=== PATIENT | male | born 1965 | race Caucasian/White ===

== ENCOUNTER 2018-04-13 09:03 | Inpatient (IN) | payer OTHER ==
[2018-04-13 10:42] VITALS: BMI 22.1
--- NOTE | 2018-04-13 11:13 | HP ---
COWS - Scale Resting Pulse: 1= OR 81-100 Sweatin= Chills/Flushing Restless Observation: 3= Extraneous Movement Pupil Size: 1= Pupils >than Normal Bone or Joint Aches: 2= Severe Diffuse Aches Runny Nose/ Eye Tearin= Runny Nose/Eyes GI Upset > 30mins: 2= Nausea/Diarrhea Tremor Observation: 2= Slight Tremor Visible Yawning Observation: 1= 1-2x During Session Anxiety or Irritability: 2=Irritable/Anxious Goose Flesh Skin: 0=Smooth Skin COWS Score: 17 CIWA Score Nausea/Vomitin Muscle Tremors: 2 Anxiety: 2 Agitation: 2 Paroxysmal Sweats: 1-Minimal Palms Moist Orientation: 0-Oriented Tacttile Disturbances: 1-Very Mild Itch/Numbness Auditory Disturbances: 0-None Visual Disturbances: 1-Very Mild Sensitivity Headache: 2-Mild CIWA-Ar Total Score: 13 - Admission Criteria [facility] Guidelines: Admission for Medically Managed Detox: Requires at least one of the followin. CIWA greater than 12 2. Seizures within the past 24 hours 3. Delirium tremens within the past 24 hours 4. Hallucinations within the past 24 hours 5. Acute intervention needed for co occurring medical disorder 6. Acute intervention needed for co occurring psychiatric disorder 7. Severe withdrawal that cannot be handled at a lower level of care (continued vomiting, continued diarrhea, abnormal vital signs) requiring intravenous medication and/or fluids 8. Patient presents the following: CIWA greater than 12 Admission Criteria Met: Admission criteria met Admission ROS [facility] Chief Complaint: ineed help to stop using heroin,alcohol and cocaine Allergies/Adverse Reactions: Allergies Allergy/AdvReac Type Severity Reaction Status Date / Time No Known Allergies Allergy Verified 04/13/18 11:06 History of Present Illness: this 52 years old male with heroin,alcohol and cocaine dependence,seeking detox, withdrawal symptom,last detox in 2017 [place] not competed nicotine dependence syncope alcohol related last 3 days ago injury to right orbit with ecchymosis 3 days [address] seen [address] [facility] multiple admissions in the past but keep relapsing longest period of sobriety 14 years weight loss hepatitis c no treatment paln to go to rehab after detox - Ebola screening Have you traveled outside of the country in the last 21 days: No (N) Have you had contact with anyone from an Ebola affected area: No Have you been sick,other than usual withdrawal symptoms: No Do you have a fever: No - Review of Systems Constitutional: Chills, Loss of Appetite, Malaise, Night Sweats, Changes in sleep, Weakness, Unintentional Wgt. Loss EENT: reports: Tearing, Nose Congestion, Other (ecchymosis right orbit injury 3 days ago seen at [facility]) Respiratory: reports: No Symptoms reported Cardiac: reports: No Symptoms Reported GI: reports: Diarrhea, Nausea, Vomiting, Abdominal cramping : reports: No Symptoms Reported Musculoskeletal: reports: Back Pain, Joint Pain, Joint Stiffness Integumentary: reports: Dryness Neuro: reports: Headache, Tremors Endocrine: reports: No Symptoms Reported Hematology: reports: No Symptoms Reported Psychiatric: reports: No Sypmtoms Reported, Judgement Intact, Mood/Affect Appropiate, Orientated x3 Other Systems: Reviewed and Negative Patient History - Patient Medical History Hx Anemia: No Hx Asthma: No Hx Cancer: No Hx Cardiac Disorders: No Hx Congestive Heart Failure: No Hx Hypertension: No Hx Hypercholesterolemia: No Hx Pacemaker: No HX Cerebrovascular Accident: No Hx Seizures: No Hx Dementia: No Hx Diabetes: No Hx Gastrointestinal Disorders: No Hx Liver Disease: No Hx Genitourinary Disorders: No Hx Sexually Transmitted Disorders: No Hx Renal Disease (ESRD): No Hx Thyroid Disease: No Hx Human Immunodeficiency Virus (HIV): No (last 2017 negative) Hx Hepatitis C: Yes (no treatment ) Hx Depression: No Hx Suicide Attempt: No Hx Bipolar Disorder: No Hx Schizophrenia: No Other Medical History: no suicidal,no homicidal - Patient Surgical History Past Surgical History: No - PPD History Previous Implant?: Yes Documented Results: Negative w/o proof Implanted On Prior [facility] Admission?: No PPD to be Administered?: Yes - Smoking Cessation Smoking history: Current every day smoker Have you smoked in the past 12 months: Yes Aproximately how many cigarettes per day: 20 Cigars Per Day: 0 Hx Chewing Tobacco Use: No Initiated information on smoking cessation: Yes 'Breaking Loose' booklet given: 04/13/18 - Substance & Tx. History Hx Alcohol Use: Yes Hx Substance Use: Yes Substance Use Type: Alcohol, Cocaine, Heroin Hx Substance Use Treatment: Yes - Substances Abused Heroin Route: Injection Frequency: Daily Amount used: 5 bags Age of first use: 18 Date of Last Use: 04/12/18 Cocaine Route: Injection Frequency: Daily Amount used: $100 Age of first use: 18 Date of Last Use: 04/12/18 Alcohol-vodka Route: Oral Frequency: Daily Amount used: 3 pts. Age of first use: 23 Date of Last Use: 04/12/18 Suboxone Route: SL Frequency: 1-3 times last 30 days Amount used: 8 mg. Age of first use: 52 Date of Last Use: 04/12/18 Family Disease History - Family Disease History Family History: Denies Admission Physical Exam [facility] - Vital Signs Vital Signs: Vital Signs - 24 hr 04/13/18 10:37 Temperature 97.3 F L Pulse Rate 85 Respiratory 17 Rate Blood Pressure 139/100 - Physical General Appearance: Yes: Moderate Distress, Tremorous, Irritable, Sweating, Anxious HEENTM: Yes: Normal ENT Inspection, LILO, Pharynx Normal, Other (ecchymosis of right orbit injury 3 days ago no numbness no dipolpia no limitation on movement of eye ball right vision ok) Respiratory: Yes: Within Normal Limits, Lungs Clear, Normal Breath Sounds Neck: Yes: Within Normal Limits, Supple, Trachea in good position Breast: Yes: Within Normal Limits Cardiology: Yes: Regular Rhythm, Regular Rate, S1, S2, Edema Abdominal: Yes: Within Normal Limits, Normal Bowel Sounds, Non Tender, Flat, Soft Genitourinary: Yes: Within Normal Limits Back: Yes: Muscle Spasm Musculoskeletal: Yes: full range of Motion, Back pain, Muscle Pain Extremities: Yes: Tremors 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: 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, Fully Oriented, Alert, Motor Strength 5/5 Integumentary: Yes: Dry, Track Francis Lymphatic: Yes: Within Normal Limits - Diagnostic (1) Opioid dependence with withdrawal Current Visit: Yes Status: Acute (2) Alcohol dependence with uncomplicated withdrawal Current Visit: Yes Status: Acute (3) Cocaine dependence Current Visit: Yes Status: Acute (4) IVDU (intravenous drug user) Current Visit: Yes Status: Acute (5) Weight loss Current Visit: Yes Status: Acute (6) Frequent falls Current Visit: Yes Status: Acute (7) Syncope Current Visit: Yes Status: Acute (8) Right orbit trauma Current Visit: Yes Status: Acute (9) Weight loss Current Visit: Yes Status: Acute (10) Hepatitis C Current Visit: Yes Status: Acute Cleared for Admission [facility] - Detox or Rehab [facility] Level of Care: Medically Managed Detox Regimen/Protocol: Methadone/Librium [facility] Breath Alcohol Content Breath Alcohol Content: 0 Urine Drug Screen - Results Drug Screen Negative: No Urine Drug Screen Results: CESAR-Cocaine, OPI-Opiates, BZO-Benzodiazepines, BUP- Suboxone
[2018-04-13] MEDS ORDERED: NICOTINE POLACRILEX 2 MG GUM BUC PRN (11:23)
[2018-04-13] MEDS ORDERED: LOPERAMIDE HCL 2 MG CAPSULE PO PRN (11:23)
[2018-04-13] MEDS ORDERED: chlordiazePOXIDE HCL 25 MG CAPSULE PO PRN (11:23)
[2018-04-13] MEDS ORDERED: hydrOXYzine PAMOATE 25 MG CAPSULE (FP) PO PRN (11:23)
[2018-04-13] MEDS ORDERED: P-EPHED 60MG/TRIPROLIDI 2.5MG TABLET PO PRN (11:23)
[2018-04-13] MEDS ORDERED: MAGNESIUM CITRATE 300 ML BOTTLE PO PRN (11:23)
[2018-04-13] MEDS ORDERED: ACETAMINOPHEN 325 MG TABLET (FP) PO PRN (11:23)
[2018-04-13] MEDS ORDERED: MAG HYDROX/AL HYDROX/SIMETH 30 ML UNIT-DOSE CUP PO PRN (11:23)
[2018-04-13] MEDS ORDERED: MAGNESIUM HYDROX 2400MG/30ML ORAL SUSPENSION 30 ML CUP PO PRN (11:23)
[2018-04-13] MEDS ORDERED: guaiFENesin/D-METHORPHAN HB 10 ML UNIT-DOSE CUPS PO PRN (11:23)
[2018-04-13] MEDS ORDERED: IBUPROFEN 400 MG TABLET (FP) PO PRN (11:23)
[2018-04-13] MEDS ORDERED: METHADONE HCL 10 MG TABLET (FOR DETOX USE ONLY) PO ONE ×2 (12:10→23:00)
[2018-04-13] MEDS: NICOTINE 21 MG/24 HOURS TOPICAL PATCH TD SCH (12:37)
--- NOTE | 2018-04-13 16:46 | EKG ---
Test Reason : Blood Pressure : / mmHG Vent. Rate : 093 BPM Atrial Rate : 093 BPM P-R Int : 162 ms QRS Dur : 080 ms QT Int : 344 ms P-R-T Axes : 074 066 063 degrees QTc Int : 427 ms NORMAL SINUS RHYTHM POSSIBLE LEFT ATRIAL ENLARGEMENT LEFT VENTRICULAR HYPERTROPHY ABNORMAL ECG NO PREVIOUS ECGS AVAILABLE Confirmed by DANA DENTON MD ([id number]) on 04/13/2018 4:46:31 PM Referred By: Confirmed By:DANA DENTON MD
[2018-04-13] MEDS: chlordiazePOXIDE HCL 25 MG CAPSULE PO SCH ×2 (17:14→22:11)
[2018-04-13 18:31] LABS: URINE APPEARANCE CLEAR; URINE BILIRUBIN NEGATIVE (<2.0 mg/dL); URINE COLOR YELLOW; URINE GLUCOSE (UA) NEGATIVE (NEGATIVE); URINE KETONE NEGATIVE (NEGATIVE); URINE LEUK ESTERASE NEGATIVE (NEGATIVE); URINE NITRITE NEGATIVE (NEGATIVE); URINE PROTEIN NEGATIVE (NEGATIVE); URINE UROBILINOGEN NEGATIVE mg/dL (0.2-1.0)
[2018-04-13] MEDS: THIAMINE HCL 100 MG TABLET (FP) PO SCH (22:11)
[2018-04-13] MEDS: cloNIDine HCL 0.1 MG TABLET PO SCH (22:12)
[2018-04-14] MEDS: chlordiazePOXIDE HCL 25 MG CAPSULE PO SCH ×4 (05:31→22:07)
[2018-04-14] MEDS ORDERED: METHADONE HCL 10 MG TABLET (FOR DETOX USE ONLY) PO SCH (10:00)
[2018-04-14] MEDS: cloNIDine HCL 0.1 MG TABLET PO SCH ×2 (10:26→22:07)
[2018-04-14] MEDS: PRENATAL VITAMINS W/ FOLIC ACID TABLET (FP) PO SCH (10:26)
[2018-04-14] MEDS: NICOTINE 21 MG/24 HOURS TOPICAL PATCH TD SCH (10:29)
--- NOTE | 2018-04-14 10:56 | PN ---
[facility] CIWA - CIWA Score Nausea/Vomitin-Mild Nausea/No Vomiting Muscle Tremors: 4-Moderate,w/Arms Extend Anxiety: 2 Agitation: 2 Paroxysmal Sweats: 1-Minimal Palms Moist Orientation: 1-Uncertain about Date Tacttile Disturbances: 1-Very Mild Itch/Numbness Auditory Disturbances: 0-None Visual Disturbances: 0-None Headache: 2-Mild CIWA-Ar Total Score: 14 [facility] COWS - Scale Resting Pulse: 1= IN 81-100 Sweatin= Chills/Flushing Restless Observation: 1= Difficult to Sit Still Pupil Size: 0= Normal to Room Light Bone or Joint Aches: 2= Severe Diffuse Aches Runny Nose/ Eye Tearin= Runny Nose/Eyes GI Upset > 30mins: 2= Nausea/Diarrhea Tremor Observation of Outstretched Hands: 2= Slight Tremor Visible Yawning Observation: 1= 1-2x During Session Anxiety or Irritability: 2=Irritable/Anxious Goose Flesh Skin: 0=Smooth Skin COWS Score: 14 [facility] Progress Note (SOAP) Subjective: body ache sweat tremor joints pain muscle cramp restlessness Objective: 04/14/18 10:58 Vital Signs Temperature 97.4 F L 04/14/18 09:11 Pulse Rate 80 04/14/18 09:11 Respiratory Rate 18 04/14/18 09:11 Blood Pressure 126/74 04/14/18 09:11 O2 Sat by Pulse Oximetry (%) Laboratory Last Values Urine Color Yellow 04/13/18 15:24 Urine Appearance Clear 04/13/18 15:24 Urine pH 7.0 (5.0-8.0) 04/13/18 15:24 Ur Specific [place] 1.021 (1.010-1.035) 04/13/18 15:24 Urine Protein Negative (NEGATIVE) 04/13/18 15:24 Urine Glucose (UA) Negative (NEGATIVE) 04/13/18 15:24 Urine Ketones Negative (NEGATIVE) 04/13/18 15:24 Urine Blood Negative (NEGATIVE) 04/13/18 15:24 Urine Nitrite Negative (NEGATIVE) 04/13/18 15:24 Urine Bilirubin Negative (<2.0 mg/dL) 04/13/18 15:24 Urine Urobilinogen Negative mg/dL (0.2-1.0) 04/13/18 15:24 Ur Leukocyte Esterase Negative (NEGATIVE) 04/13/18 15:24 lab noted Assessment: 04/14/18 10:58 withdrawal sx Plan: continue detox
[2018-04-14 11:00] LABS: HEMATOCRIT 42.3 % (35.4-49); HEMOGLOBIN 13.4 GM/dL (11.7-16.9); MCH 31.2 pg (25.7-33.7); MCHC 31.8 g/dl (32.0-35.9); MEAN CELL VOLUME 98.2 fl (80-96); MEAN PLT VOLUME 8.1 fl (7.5-11.1); PLATELET COUNT 375 K/MM3 (134-434); RDW 14.1 % (11.9-15.9); WHITE BLOOD COUNT 8.4 K/mm3 (4.0-10.0)
[2018-04-14 11:33] LABS: SICKLE CELL SCREEN NEGATIVE (NEGATIVE)
[2018-04-14 11:45] LABS: ALBUMIN 3.2 g/dl (3.4-5.0); ALK PHOS 107 U/L (45-117); ANION GAP 7 MMOL/L (8-16); BILIRUBIN,TOTAL 0.5 mg/dL (0.2-1); BLOOD UREA NITROGEN 17 mg/dL (7-18); CALCIUM 8.7 mg/dL (8.5-10.1); CHLORIDE 101 mmol/L (98-107); CO2 28 mmol/L (21-32); GLUCOSE,RANDOM 296 mg/dL (74-106); POTASSIUM 4.1 mmol/L (3.5-5.1); SGOT/AST 83 U/L (15-37); SGPT/ALT 54 U/L (13-61); SODIUM 136 mmol/L (136-145); TOT PROT 7.5 g/dl (6.4-8.2)
[2018-04-14] MEDS: CYCLOBENZAPRINE HCL 10 MG TABLET (FP) PO PRN (17:39)
[2018-04-14] MEDS: THIAMINE HCL 100 MG TABLET (FP) PO SCH (22:07)
[2018-04-14] MEDS: MELATONIN 5 MG TABLETS PO PRN (22:07)
[2018-04-15] MEDS: chlordiazePOXIDE HCL 25 MG CAPSULE PO SCH ×2 (05:42→10:16)
[2018-04-15] MEDS: cloNIDine HCL 0.1 MG TABLET PO SCH ×2 (10:15→22:10)
[2018-04-15] MEDS: NICOTINE 21 MG/24 HOURS TOPICAL PATCH TD SCH (10:15)
[2018-04-15] MEDS: PRENATAL VITAMINS W/ FOLIC ACID TABLET (FP) PO SCH (10:15)
[2018-04-15] MEDS: METHADONE HCL 5 MG TABLET (FOR DETOX USE ONLY) PO SCH (10:16)
[2018-04-15] MEDS: MENTHOL/PHENOL 1 EACH UD MM PRN ×2 (10:18→17:24)
--- NOTE | 2018-04-15 13:19 | PN ---
S CIWA - CIWA Score Nausea/Vomitin Muscle Tremors: 2 Anxiety: 3 Agitation: 3 Paroxysmal Sweats: 3 Orientation: 0-Oriented Tacttile Disturbances: 0-None Auditory Disturbances: 0-None Visual Disturbances: 0-None Headache: 0-None Present CIWA-Ar Total Score: 14 S COWS - Scale Resting Pulse: 0= [place] 80 or Below Sweatin=Flushed/Facial Moisture Restless Observation: 1= Difficult to Sit Still Pupil Size: 2= Moderately Dilated Bone or Joint Aches: 1= Mild Discomfort Runny Nose/ Eye Tearin= Runny Nose/Eyes GI Upset > 30mins: 2= Nausea/Diarrhea Tremor Observation of Outstretched Hands: 2= Slight Tremor Visible Yawning Observation: 0= None Anxiety or Irritability: 2=Irritable/Anxious Goose Flesh Skin: 0=Smooth Skin COWS Score: 14 [facility] Progress Note (SOAP) Subjective: PATIENT C/O ANXIETY, SHAKES, SWEATING, DRY COUGH,RUNNY NOSE AND TEARING OF EYES Objective: 04/15/18 13:16 Vital Signs Temperature 97.1 F L 04/15/18 09:20 Pulse Rate 81 04/15/18 09:20 Respiratory Rate 18 04/15/18 09:20 Blood Pressure 129/83 04/15/18 09:20 O2 Sat by Pulse Oximetry (%) Laboratory Tests 04/13/18 04/14/18 04/14/18 15:24 05:45 05:45 WBC 8.4 RBC 4.30 Hgb 13.4 Hct 42.3 MCV 98.2 H MCH 31.2 MCHC 31.8 L RDW 14.1 Plt Count 375 MPV 8.1 Sickle Cell Screen Negative Sodium 136 Potassium 4.1 Chloride 101 Carbon Dioxide 28 Anion Gap 7 L BUN 17 Creatinine 1.0 Creat Clearance w eGFR > 60 Random Glucose 296 H Calcium 8.7 Total Bilirubin 0.5 AST 83 H ALT 54 Alkaline Phosphatase 107 Total Protein 7.5 Albumin 3.2 L Urine Color Yellow Urine Appearance Clear Urine pH 7.0 Ur Specific [place] 1.021 Urine Protein Negative Urine Glucose (UA) Negative Urine Ketones Negative Urine Blood Negative Urine Nitrite Negative Urine Bilirubin Negative Urine Urobilinogen Negative Ur Leukocyte Esterase Negative RPR Titer 04/14/18 05:45 WBC RBC Hgb Hct MCV MCH MCHC RDW Plt Count MPV Sickle Cell Screen Sodium Potassium Chloride Carbon Dioxide Anion Gap BUN Creatinine Creat Clearance w eGFR Random Glucose Calcium Total Bilirubin AST ALT Alkaline Phosphatase Total Protein Albumin Urine Color Urine Appearance Urine pH Ur Specific [place] Urine Protein Urine Glucose (UA) Urine Ketones Urine Blood Urine Nitrite Urine Bilirubin Urine Urobilinogen Ur Leukocyte Esterase RPR Titer Nonreactive PE: ALERT AND ORIENTED X 3 SKIN +FACIAL MOISTURE +NASAL CONGESTION EXT FULL ROM, AMB AD KATINA, +TREMORS +ANXIETY Assessment: 04/15/18 13:18 WITHDRAWAL SX Plan: CONTINUE DETOX ENCOURAGE ORAL FLUIDS CONTINUE TO MONITOR
[2018-04-15] MEDS: chlordiazePOXIDE 5 MG CAPSULE PO SCH ×2 (17:22→22:08)
[2018-04-15] MEDS: THIAMINE HCL 100 MG TABLET (FP) PO SCH (22:08)
[2018-04-15] MEDS: CYCLOBENZAPRINE HCL 10 MG TABLET (FP) PO PRN (22:10)
[2018-04-15] MEDS: MELATONIN 5 MG TABLETS PO PRN (22:10)
[2018-04-16] MEDS: chlordiazePOXIDE 5 MG CAPSULE PO SCH ×2 (05:21→10:17)
[2018-04-16] MEDS: PRENATAL VITAMINS W/ FOLIC ACID TABLET (FP) PO SCH (10:16)
[2018-04-16] MEDS: cloNIDine HCL 0.1 MG TABLET PO SCH ×2 (10:16→22:05)
[2018-04-16] MEDS: NICOTINE 21 MG/24 HOURS TOPICAL PATCH TD SCH (10:17)
[2018-04-16] MEDS: METHADONE HCL 5 MG TABLET (FOR DETOX USE ONLY) PO SCH (10:17)
[2018-04-16] MEDS ORDERED: TRIMETHOBENZAMIDE HCL 300 MG CAPSULE PO PRN (12:04)
--- NOTE | 2018-04-16 17:16 | PN ---
[facility] Progress Note (SOAP) Subjective: Diarrhea, Nausea, Tremors, Interrupted Sleep, Fatigue, Sweating. Objective: PATIENT A & O X 3. IN NO ACUTE DISTRESS. 04/16/18 17:15 Vital Signs Temperature 97.9 F 04/16/18 15:04 Pulse Rate 109 H 04/16/18 15:04 Respiratory Rate 18 04/16/18 15:04 Blood Pressure 117/82 04/16/18 15:04 O2 Sat by Pulse Oximetry (%) Laboratory Tests 04/13/18 04/14/18 04/14/18 15:24 05:45 05:45 WBC 8.4 RBC 4.30 Hgb 13.4 Hct 42.3 MCV 98.2 H MCH 31.2 MCHC 31.8 L RDW 14.1 Plt Count 375 MPV 8.1 Sickle Cell Screen Negative Sodium 136 Potassium 4.1 Chloride 101 Carbon Dioxide 28 Anion Gap 7 L BUN 17 Creatinine 1.0 Creat Clearance w eGFR > 60 Random Glucose 296 H Calcium 8.7 Total Bilirubin 0.5 AST 83 H ALT 54 Alkaline Phosphatase 107 Total Protein 7.5 Albumin 3.2 L Urine Color Yellow Urine Appearance Clear Urine pH 7.0 Ur Specific [place] 1.021 Urine Protein Negative Urine Glucose (UA) Negative Urine Ketones Negative Urine Blood Negative Urine Nitrite Negative Urine Bilirubin Negative Urine Urobilinogen Negative Ur Leukocyte Esterase Negative RPR Titer 04/14/18 05:45 WBC RBC Hgb Hct MCV MCH MCHC RDW Plt Count MPV Sickle Cell Screen Sodium Potassium Chloride Carbon Dioxide Anion Gap BUN Creatinine Creat Clearance w eGFR Random Glucose Calcium Total Bilirubin AST ALT Alkaline Phosphatase Total Protein Albumin Urine Color Urine Appearance Urine pH Ur Specific [place] Urine Protein Urine Glucose (UA) Urine Ketones Urine Blood Urine Nitrite Urine Bilirubin Urine Urobilinogen Ur Leukocyte Esterase RPR Titer Nonreactive LABS NOTED. Assessment: 04/16/18 17:15 WITHDRAWAL SYMPTOMS. Plan: CONTINUE DETOX. BGM ACBK FOR ELEVATED ADMISSION RANDOM GLUCOSE LEVEL. PRN IMMODFIUM FOR DIARRHEA. PRN TIGAN PO FOR NAUSEA.
[2018-04-16] MEDS: chlordiazePOXIDE HCL 10 MG CAPSULE PO SCH ×2 (17:34→22:05)
[2018-04-16] MEDS: THIAMINE HCL 100 MG TABLET (FP) PO SCH (22:04)
[2018-04-16] MEDS: MELATONIN 5 MG TABLETS PO PRN (22:06)
[2018-04-17] MEDS: chlordiazePOXIDE HCL 10 MG CAPSULE PO SCH ×2 (06:00→10:31)
[2018-04-17] MEDS ORDERED: METHADONE HCL 10 MG TABLET (FOR DETOX USE ONLY) PO SCH (10:00)
[2018-04-17] MEDS: PRENATAL VITAMINS W/ FOLIC ACID TABLET (FP) PO SCH (10:31)
[2018-04-17] MEDS: NICOTINE 21 MG/24 HOURS TOPICAL PATCH TD SCH (10:31)
[2018-04-17] MEDS: cloNIDine HCL 0.1 MG TABLET PO SCH ×2 (10:31→22:08)
[2018-04-17] MEDS: MENTHOL/PHENOL 1 EACH UD MM PRN (16:03)
--- NOTE | 2018-04-17 16:20 | PN ---
[facility] Progress Note (SOAP) Subjective: Sweating, chills, tremor Objective: 04/17/18 16:17 Last Vital Signs Temp Pulse Resp BP Pulse Ox 96.8 F L 115 H 20 101/58 L 04/17/18 13:14 04/17/18 13:14 04/17/18 13:14 04/17/18 13:14 Laboratory Tests 04/13/18 04/14/18 04/14/18 15:24 05:45 05:45 WBC 8.4 RBC 4.30 Hgb 13.4 Hct 42.3 MCV 98.2 H MCH 31.2 MCHC 31.8 L RDW 14.1 Plt Count 375 MPV 8.1 Sickle Cell Screen Negative Sodium 136 Potassium 4.1 Chloride 101 Carbon Dioxide 28 Anion Gap 7 L BUN 17 Creatinine 1.0 Creat Clearance w eGFR > 60 POC Glucometer Random Glucose 296 H Calcium 8.7 Total Bilirubin 0.5 AST 83 H ALT 54 Alkaline Phosphatase 107 Total Protein 7.5 Albumin 3.2 L Urine Color Yellow Urine Appearance Clear Urine pH 7.0 Ur Specific [place] 1.021 Urine Protein Negative Urine Glucose (UA) Negative Urine Ketones Negative Urine Blood Negative Urine Nitrite Negative Urine Bilirubin Negative Urine Urobilinogen Negative Ur Leukocyte Esterase Negative RPR Titer 04/14/18 04/17/18 05:45 06:04 WBC RBC Hgb Hct MCV MCH MCHC RDW Plt Count MPV Sickle Cell Screen Sodium Potassium Chloride Carbon Dioxide Anion Gap BUN Creatinine Creat Clearance w eGFR POC Glucometer 93 Random Glucose Calcium Total Bilirubin AST ALT Alkaline Phosphatase Total Protein Albumin Urine Color Urine Appearance Urine pH Ur Specific [place] Urine Protein Urine Glucose (UA) Urine Ketones Urine Blood Urine Nitrite Urine Bilirubin Urine Urobilinogen Ur Leukocyte Esterase RPR Titer Nonreactive Labs reviewed Assessment: 04/17/18 16:19 Withdrawal symptoms Plan: Continue detox Encouraged PO water intake Patient is awaiting aftercare status with his counselor
[2018-04-17] MEDS: THIAMINE HCL 100 MG TABLET (FP) PO SCH (22:08)
[2018-04-17] MEDS: CYCLOBENZAPRINE HCL 10 MG TABLET (FP) PO PRN (22:09)
[2018-04-17] MEDS: MELATONIN 5 MG TABLETS PO PRN (22:09)
[2018-04-18] MEDS: CYCLOBENZAPRINE HCL 10 MG TABLET (FP) PO PRN (05:48)
[2018-04-18] MEDS ORDERED: METHADONE HCL 5 MG TABLET (FOR DETOX USE ONLY) PO SCH (06:00)
[2018-04-18] MEDS: PRENATAL VITAMINS W/ FOLIC ACID TABLET (FP) PO SCH (10:13)
[2018-04-18] MEDS: cloNIDine HCL 0.1 MG TABLET PO SCH (11:47)
[2018-04-18] MEDS: NICOTINE 21 MG/24 HOURS TOPICAL PATCH TD SCH (11:47)
[2018-04-18 13:36] VITALS: BP 137/88; PULSE 120; TEMP 97
--- NOTE | 2018-04-18 13:59 | DS ---
[facility] Detox Discharge Summary Admission Date: 04/13/18 Discharge Date: 04/18/18 - History Present History: Opioid Dependence Additional Comments: 52 years old male admitted on 04/13/18 for opiate withdrawal stabilization completed opiate detox regimen tolerated well alert no acute distress [place] [facility] Exam Results Vital Signs: Vital Signs Temperature 97.0 F L 04/18/18 13:34 Pulse Rate 120 H 04/18/18 13:34 Respiratory Rate 20 04/18/18 13:34 Blood Pressure 137/88 04/18/18 13:34 O2 Sat by Pulse Oximetry (%) Pertinent Admission Physical Exam Findings: opiate withdrawal sx Laboratory Last Values WBC 8.4 K/mm3 (4.0-10.0) 04/14/18 05:45 RBC 4.30 M/mm3 (4.00-5.60) 04/14/18 05:45 Hgb 13.4 GM/dL (11.7-16.9) 04/14/18 05:45 Hct 42.3 % (35.4-49) 04/14/18 05:45 MCV 98.2 fl (80-96) H 04/14/18 05:45 MCH 31.2 pg (25.7-33.7) 04/14/18 05:45 MCHC 31.8 g/dl (32.0-35.9) L 04/14/18 05:45 RDW 14.1 % (11.9-15.9) 04/14/18 05:45 Plt Count 375 K/MM3 (134-434) 04/14/18 05:45 MPV 8.1 fl (7.5-11.1) 04/14/18 05:45 Sickle Cell Screen Negative (NEGATIVE) 04/14/18 05:45 Sodium 136 mmol/L (136-145) 04/14/18 05:45 Potassium 4.1 mmol/L (3.5-5.1) 04/14/18 05:45 Chloride 101 mmol/L (98-107) 04/14/18 05:45 Carbon Dioxide 28 mmol/L (21-32) 04/14/18 05:45 Anion Gap 7 MMOL/L (8-16) L 04/14/18 05:45 BUN 17 mg/dL (7-18) 04/14/18 05:45 Creatinine 1.0 mg/dL (0.55-1.3) 04/14/18 05:45 Creat Clearance w eGFR > 60 (>60) 04/14/18 05:45 POC Glucometer 105 UNITS (80-120) 04/18/18 05:48 Random Glucose 296 mg/dL (74-106) H 04/14/18 05:45 Calcium 8.7 mg/dL (8.5-10.1) 04/14/18 05:45 Total Bilirubin 0.5 mg/dL (0.2-1) 04/14/18 05:45 AST 83 U/L (15-37) H 04/14/18 05:45 ALT 54 U/L (13-61) 04/14/18 05:45 Alkaline Phosphatase 107 U/L (45-117) 04/14/18 05:45 Total Protein 7.5 g/dl (6.4-8.2) 04/14/18 05:45 Albumin 3.2 g/dl (3.4-5.0) L 04/14/18 05:45 Urine Color Yellow 04/13/18 15:24 Urine Appearance Clear 04/13/18 15:24 Urine pH 7.0 (5.0-8.0) 04/13/18 15:24 Ur Specific [place] 1.021 (1.010-1.035) 04/13/18 15:24 Urine Protein Negative (NEGATIVE) 04/13/18 15:24 Urine Glucose (UA) Negative (NEGATIVE) 04/13/18 15:24 Urine Ketones Negative (NEGATIVE) 04/13/18 15:24 Urine Blood Negative (NEGATIVE) 04/13/18 15:24 Urine Nitrite Negative (NEGATIVE) 04/13/18 15:24 Urine Bilirubin Negative (<2.0 mg/dL) 04/13/18 15:24 Urine Urobilinogen Negative mg/dL (0.2-1.0) 04/13/18 15:24 Ur Leukocyte Esterase Negative (NEGATIVE) 04/13/18 15:24 RPR Titer Nonreactive (NONREACTIVE) 04/14/18 05:45 lab noted - Treatment Hospital Course: Detox Protocol Followed, Detoxed Safely, Responded well, Discharged Condition Good, Rehab Referral Accepted Patient has Accepted a Rehab Referral to: [facility] [place] [facility] - Medication Discharge Medications: Ambulatory Orders NK [No Known Home Medication] 04/13/18 - Diagnosis (1) Opioid dependence with withdrawal Current Visit: Yes Status: Acute (2) Weight loss Current Visit: Yes Status: Acute (3) Hepatitis C Current Visit: Yes Status: Chronic Qualifiers: Viral hepatitis chronicity: chronic Hepatic coma status: without hepatic coma Qualified Code(s): B18.2 - Chronic viral hepatitis C - AMA Did Patient Leave Against Medical Advice: No
== END 2018-04-18 16:46 | disposition home or self-care (01) | DRG 773 ==
LOC: YASAS 09:03 → Y3N 11:14
PROC: HZ2ZZZZ Detoxification Services for Substance Abuse Treatment (ICD-10-PCS; principal; 2018-04-13)
DX: F11.23 Opioid dependence with withdrawal (principal); F10.230 Alcohol dependence with withdrawal, uncomplicated; F14.20 Cocaine dependence, uncomplicated; F17.210 Nicotine dependence, cigarettes, uncomplicated; B18.2 Chronic viral hepatitis C; R29.6 Repeated falls; S05.91XD Unspecified injury of right eye and orbit, subsequent encounter; X58.XXXD Exposure to other specified factors, subsequent encounter; Z59.0 Homelessness
CPT/HCPCS: 36415; 80053; 81003; 82962; 85027; 85660; 86593; 93005; 93010; J0735